=== PATIENT | female | born 1995 | race African-American/Black ===

== ENCOUNTER 2016-10-25 20:42 | Emergency (ER) | payer OTHER ==
[~2016-10-25] VITALS: Ht 160 cm; Wt 65.0 kg
[2016-10-26 01:55] VITALS: BP 121/82
== END 2016-10-26 01:56 | disposition home or self-care (01) ==
LOC: ER 23:34
DX: J02.9 Acute pharyngitis, unspecified (principal)
CPT/HCPCS: 99283

== ENCOUNTER 2019-07-25 15:50 | Emergency (ER) | payer OTHER ==
[~2019-07-25] VITALS: Ht 167.6 cm; Wt 80.0 kg
[2019-07-25 22:51] LABS: CLARITY URINE CLOUDY (CLEAR); COLOR URINE YELLOW (YELLOW); KETONES URINE NEGATIVE (NEGATIVE); LEUKOCYTE ESTERASE URINE TRACE (NEGATIVE); NITRITE URINE NEGATIVE (NEGATIVE); OCCULT BLOOD URINE NEGATIVE (NEGATIVE); PROTEIN URINE NEGATIVE (NEGATIVE); SPECIFIC GRAVITY URINE 1.022 (1.005-1.030); UROBILINOGEN URINE 0.2 E.U./dL (0.2-1.0)
[2019-07-26 02:04] VITALS: BP 105/68
== END 2019-07-26 02:30 | disposition home or self-care (01) ==
LOC: ER 15:50
DX: R10.32 Left lower quadrant pain (principal); R11.0 Nausea; F12.10 Cannabis abuse, uncomplicated
CPT/HCPCS: 74021; 81003; 81025; 99284